=== PATIENT | female | born 1985 | race Two or more races ===

== ENCOUNTER 2024-09-08 14:33 | Emergency (ER) | payer OTHER ==
[~2024-09-08] VITALS: Ht 172.7 cm; Wt 83.0 kg
[2024-09-08 14:38] VITALS: BP 127/78; PULSE 107
[2024-09-08 15:01] VITALS: RESP 20; O2SAT 97
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
== END 2024-09-08 16:03 ==
LOC: ER 14:38
DX: G89.29 Other chronic pain (principal); M25.511 Pain in right shoulder; F17.290 Nicotine dependence, other tobacco product, uncomplicated; F20.9 Schizophrenia, unspecified; F31.9 Bipolar disorder, unspecified; F12.90 Cannabis use, unspecified, uncomplicated; I10 Essential (primary) hypertension; Z98.890 Other specified postprocedural states; Z79.899 Other long term (current) drug therapy